=== PATIENT | male | born 1995 | race Caucasian/White ===

== ENCOUNTER 2018-02-19 15:17 | Emergency (ER) | payer BC ==
[~2018-02-19] VITALS: Ht 185.4 cm; Wt 82.0 kg
[2018-02-19 15:22] VITALS: PULSE 108; TEMP 36.9; Ht 185.4 cm; Wt 82.0 kg
[2018-02-19] MEDS ORDERED: HYDROCODONE/ACETAMIN 5/325MG TAB PO STA (15:30)
--- NOTE | 2018-02-19 15:53 | EMERGENCY ROOM VISIT NOTE ---
ED Visit Note First contact with patient: 15:25 CHIEF COMPLAINT: Left ankle injury HISTORY OF PRESENT ILLNESS: This 22-year-old male presents to ER with chief complaint of left ankle injury and pain. The patient states that last evening he jumped off a truck injuring his left ankle. The patient states that he did not come to the emergency room because he was drinking alcohol. He has been walking on the foot since the injury occurred. The patient took 1 dose of ibuprofen at 9:00 this morning. Patient denies any knee pain . the patient does not live locally. REVIEW OF SYSTEMS: 6 system review was performed and was negative unless stated otherwise in history of present illness. PMH: No prior significant ankle injury. Asthma SOCIAL HISTORY: Patient does not live locally. Admits to tobacco use and occasional alcohol use. PHYSICAL EXAM: Vital Signs: Were reviewed reviewed Nurse's notes. GENERAL: 22- year-old male appears in no acute distress. MENTAL STATUS: Alert, oriented, and cooperative. Left ANKLE: The patient has diffuse swelling over the entire ankle joint. There is ecchymosis noted on both the medial and lateral aspect of the ankle. The patient is able to move his toes without difficulty. There is no ligament instability. The foot and toes are warm and well-perfused. Sensation to pain and light touch is intact. EMERGENCY DEPARTMENT COURSE: The patient was evaluated. The patient was given Auberry 5/325 mg 2 tablets p.o. for pain. X-ray of the left ankle was interpreted by the radiologist and myself. DIAGNOSTICS:L ANKLE MIN 3 VIEWS ROUTINE CLINICAL HISTORY: Ankle injury trauma COMPARISON: None. DISCUSSION: Oblique fracture distal fibula. Ankle mortise is aligned anatomically. Moderate generalized soft tissue edema IMPRESSION: Oblique fracture distal fibula. The above report was generated using voice recognition software. It may contain grammatical, syntax or spelling errors. Electronically signed by: Neal Silveira M.D. The patient was informed of the findings. The patient was placed in Ortho- Glass stirrup splint and given crutches. The patient was also given a CD with his x-rays to take to a local orthopedic surgeon. The patient was discharged home in stable condition with a friend driving. DIAGNOSIS: Fracture left distal fibula DISCHARGE INSTRUCTIONS: Ice and elevation as much as possible over the next 24 hours. Keep splint in place until evaluated by orthopedics. Absolutely no weightbearing until evaluated by orthopedics. Use crutches for ambulation. Ibuprofen 600 mg every 6 hours with food for pain. Take Auberry as needed for more severe pain. Do not drive while taking the Auberry. Call your local orthopedic surgeon tomorrow morning for follow-up appointment. Vital Signs Date Time Temp Pulse Resp B/P (MAP) Pulse Ox O2 Delivery O2 Flow Rate FiO2 02/19/18 15:22 36.9 108 16 141/89 97 Room Air Medications Administered Medications (Trade) Dose Ordered Sig/Reji Route Start Time Stop Time Status Last Admin Dose Admin Acetaminophen/ Hydrocodone Bitart (Auberry 5/325 Tab) 2 tab NOW STAT PO 02/19/18 15:30 02/19/18 15:31 DC 02/19/18 15:46 2 TAB Departure Information Referrals No Doctor, Assigned (PCP) Patient Instructions [facility]
[2018-02-19] MEDS ORDERED: HYDR-5688 PO (15:54)
[2018-02-19 16:25] VITALS: BP 135/78; O2SAT 96
== END 2018-02-19 16:26 | disposition home or self-care (01) ==
LOC: C.EDB 15:18 → C.EDD 16:26
DX: S82.432A Displaced oblique fracture of shaft of left fibula, initial encounter for closed fracture (principal); W17.89XA Other fall from one level to another, initial encounter; J45.909 Unspecified asthma, uncomplicated